=== PATIENT | male | born 1965 | race Caucasian/White ===

== ENCOUNTER → 2018-05-27 09:42 | Outpatient (CLI) | payer OTHER, SELFPAY ==
[2018-02-12 09:09] VITALS: BMI 39.4
[2018-05-27 12:18] LABS: Absolute Lymphocyte Count 1.52 X10^3/ul (0.83-4.51); Absolute Neutrophil Count 3.9 X10^3/uL (2.0-7.7); Basophil# 0.03 X10^3/uL; Basophil% 0.5 % (0-1); Eosinophil# 0.18 X10^3/uL; Eosinophils% 2.9 % (0-5); Hematocrit 43.8 % (40-54); Hemoglobin 14.8 g/dl (13.0-16.5); Lymphocyte # 1.52 X10^3/ul (4.0); Lymphocyte % 24.1 % (19-41); Mean Corp Hgb Conc 33.8 g/gl (32-36); Mean Corpuscular Hgb 29.7 pg (27.0-32.0); Mean Corpuscular Volume 87.8 fL (80-94); Mean Platelet Vol. 8.9 fl (6.2-12.0); Monocyte# 0.72 X10^3/uL; Monocyte% 11.4 % (0-10); Neutrophil # 3.85 X10^3/uL (2.7-7.7); Neutrophil % 60.9 % (47-70); Platelet Count 170 K/mm3 (150-450); RBC Distribution Width CV 14.4 % (11.6-14.6); RBC Distribution Width SD 45.7 fl (35.1-43.9); Red Blood Count 4.99 M/mm3 (4.6-6.2); White Blood Count 6.3 K/mm3 (4.4-11.0)
[2018-05-27 12:24] LABS: POSITIVE COUNT NO; POSITIVE DIFFERENTIAL NO; POSITIVE MORPHOLOGY NO
[2018-05-27 12:44] LABS: Anion Gap 2 (5-15); BUN 13 mg/dL (7-18); BUN/Creat Ratio 15.4 RATIO (10-20); Calcium,Total 8.6 mg/dL (8.5-10.1); Chloride 109 mmol/L (98-107); Cholesterol 154 mg/dL (200); Creatinine, Serum 0.84 mg/dL (0.70-1.30); EST Glomerular Filtration Rate 101 mL/min (>60); Est Glom Filt Rate - Afr Amer 123 mL/min (>60); Glucose 98 mg/dL (74-106); High Density Lipoprotein 22 mg/dL; Potassium 3.9 mmol/L (3.5-5.1); Sodium Level 138 mmol/L (136-145); Thyroid Stim Hormone (TSH) 0.52 uIU/mL (0.358-3.74); Triglycerides 220 mg/dL; Very Low Density Lipoprotein 44 mg/dL (5-40)
== END ==
PROVIDERS: Family Provider Family Medicine; PCP Family Medicine; Referring Provider Family Medicine; Visit Provider Family Medicine
DX: Z00.00 Encounter for general adult medical examination without abnormal findings (principal)
CPT/HCPCS: 36415; 80048; 80061; 84403; 84443; 85025

== ENCOUNTER → 2018-06-04 16:11 | Outpatient (CLI) | payer OTHER, SELFPAY ==
[2018-02-12 09:09] VITALS: BMI 39.4
== END ==
PROVIDERS: Family Provider Family Medicine; PCP Family Medicine; Referring Provider Family Medicine; Visit Provider Family Medicine
DX: R79.89 Other specified abnormal findings of blood chemistry (principal)
CPT/HCPCS: 36415; 84403

== ENCOUNTER → 2018-07-16 09:41 | Outpatient (CLI) | payer OTHER, SELFPAY ==
[2018-02-12 09:09] VITALS: BMI 39.4
== END ==
PROVIDERS: Family Provider Family Medicine; PCP Family Medicine; Referring Provider Family Medicine; Visit Provider Family Medicine
DX: R79.89 Other specified abnormal findings of blood chemistry (principal)
CPT/HCPCS: 36415; 84403

== ENCOUNTER → 2018-08-24 16:05 | Outpatient (CLI) | payer OTHER, SELFPAY ==
[2018-02-12 09:09] VITALS: BMI 39.4
== END ==
PROVIDERS: Family Provider Family Medicine; PCP Family Medicine; Visit Provider Nurse Practitioner Family
DX: R79.89 Other specified abnormal findings of blood chemistry (principal)
CPT/HCPCS: 36415; 84403

== ENCOUNTER → 2018-10-28 11:32 | Outpatient (CLI) | payer OTHER, SELFPAY ==
[2018-02-12 09:09] VITALS: BMI 39.4
== END ==
PROVIDERS: Family Provider Family Medicine; PCP Family Medicine; Referring Provider Family Medicine; Visit Provider Family Medicine
DX: R79.89 Other specified abnormal findings of blood chemistry (principal)
CPT/HCPCS: 36415; 84403

== ENCOUNTER → 2019-01-27 15:49 | Outpatient (CLI) | payer OTHER, SELFPAY ==
[2018-02-12 09:09] VITALS: BMI 39.4
== END ==
PROVIDERS: Family Provider Family Medicine; PCP Family Medicine; Referring Provider Family Medicine; Visit Provider Family Medicine
DX: R79.89 Other specified abnormal findings of blood chemistry (principal)
CPT/HCPCS: 36415; 84403

== ENCOUNTER → 2019-02-24 16:42 | Outpatient (CLI) | payer OTHER, SELFPAY ==
[2018-02-12 09:09] VITALS: BMI 39.4
--- NOTE | 2019-02-24 16:46 | RAD_ITS ---
HISTORY: right hip pain EXAMINATION/TECHNIQUE: XR AP pelvis and bilateral hips 5 views COMPARISON: 11/04/2011 FINDINGS: No fracture, dislocation, or bony abnormality. The sacroiliac and hip joints appear preserved. No bone erosions. As visualized, the soft tissues are negative. RAD/Hips B/L min 2 views w/ Pelvis IMPRESSION: Negative exam. Normal pelvis and bilateral hips. at 0402 Reported and signed by: Nicolas Quesada MD Electronically Signed: Nicolas Quesada, at 4:01 EST Tel , Service support ,
== END ==
PROVIDERS: Family Provider Family Medicine; PCP Family Medicine; Referring Provider Family Medicine; Visit Provider Family Medicine
DX: M25.551 Pain in right hip (principal)
CPT/HCPCS: 73521

== ENCOUNTER → 2019-04-14 14:30 | Outpatient (CLI) | payer OTHER, SELFPAY ==
[2018-02-12 09:09] VITALS: BMI 39.4
--- NOTE | 2019-04-14 15:39 | NEURO ---
NCS and/or EMG Patient Report Ordering Doctor: Ike Dykes DATE OF SERVICE: 04/14/19 Burke Panchal is a 54-year-old male presents for electrodiagnostic testing of the upper limbs. He reports numbness and tingling in both hands. Electrodiagnostic findings: Right median motor nerve demonstrates normal distal latency, with normal amplitude and reduced conduction velocity. Left median motor nerve demonstrates prolonged distal latency with normal amplitude and reduced conduction velocity. Normal ulnar motor response bilaterally. Prolonged median sensory latency at the wrist bilaterally on needle EMG, all muscles tested in the upper limb showed no evidence of denervation with normal motor unit action potentials. Electrodiagnostic impression: This is an abnormal study in the upper limbs. 1. Electrodiagnostic findings demonstrate bilateral median mononeuropathy. This is consistent with a mild bilateral carpal tunnel syndrome. If there are any further questions, please do not hesitate to contact me.
--- NOTE | 2019-04-14 17:01 | RAD_ITS ---
STUDY: X-RAY - LEFT KNEE REASON FOR EXAM: Left knee pain for one year. TECHNIQUE: 4 view(s) of the knee. COMPARISON: Radiographs 11/04/2011. FINDINGS: Normal visualized distal femur. Normal visualized proximal tibia and fibula. Normal proximal tibiofibular articulation. Normal medial femorotibial compartment. Normal lateral femorotibial compartment. Normal patellofemoral articulation. There is patellar enthesopathy. There are small metallic foreign bodies at the medial aspect of the distal femoral diaphysis. There is a small soft tissue calcification posterior to the proximal fibular/tibial diaphysis. RAD/Knee 4 or More Views IMPRESSION: Patellar enthesopathy. Small metallic foreign bodies. Electronically Signed: Luis Miguel Avila MD at 8:51 EST Tel , Service support ,
== END ==
PROVIDERS: Family Provider Family Medicine; PCP Family Medicine; Referring Provider Family Medicine; Visit Provider Family Medicine
DX: G56.03 Carpal tunnel syndrome, bilateral upper limbs (principal); M25.562 Pain in left knee
CPT/HCPCS: 73564; 95886; 95912

== ENCOUNTER → 2020-02-15 | Outpatient (CLI) | payer OTHER, SELFPAY | END | disposition home or self-care (01) | LOC: LABSPEC 12:22 | PROVIDERS: PCP Family Medicine; Visit Provider Physician Assistant Surgical | DX: U07.1 COVID-19 (principal) | CPT/HCPCS: 87635; U0003 ==

== ENCOUNTER → 2020-02-28 | Outpatient (CLI) | payer OTHER, SELFPAY | END | disposition home or self-care (01) | LOC: LABSPEC 15:23 | PROVIDERS: PCP Family Medicine; Visit Provider Physician Assistant Surgical | DX: Z20.822 Contact with and (suspected) exposure to COVID-19 (principal) | CPT/HCPCS: 87635; U0005; U0003 ==

== ENCOUNTER 2021-03-03 09:55 | Outpatient (CLI) | payer OTHER, SELFPAY ==
[2021-03-03 10:09] VITALS: BP 134/81; PULSE 87; RESP 16; TEMP 36.4; O2SAT 98; BMI 39.1
[2021-03-03] MEDS: 0.9% Saline Lock 10 ML Syringe IV (10:12)
[2021-03-03 10:39] VITALS: BP 127/76; PULSE 84; RESP 16; TEMP 36.9; O2SAT 99
[2021-03-03 11:43] VITALS: BP 116/76; PULSE 80; RESP 16; TEMP 36.5; O2SAT 98
== END 2021-03-03 23:59 | disposition home or self-care (01) ==
LOC: MS3OUT 09:55 → MS3 09:56
PROVIDERS: PCP Family Medicine; Referring Provider Nurse Practitioner Adult Health; Visit Provider Nurse Practitioner Adult Health
DX: Z23 Encounter for immunization (principal); U07.1 COVID-19; E66.9 Obesity, unspecified; Z68.39 Body mass index [BMI] 39.0-39.9, adult
CPT/HCPCS: J7050; M0245; Q0245; A4216

== ENCOUNTER 2021-03-15 15:09 | Outpatient (CLI) | payer OTHER, SELFPAY ==
--- NOTE | 2021-03-15 15:12 | RAD_ITS ---
STUDY: X-RAY CHEST REASON FOR EXAM: Male, 55 years old. ABN DENSITY TECHNIQUE: PA and 2 lateral views nipple markers were added on this exam COMPARISON: 03/07/2021 FINDINGS: Previously noted density in the right lower lung field is a nipple shadow as a nipple marker shows. The lungs are clear and expanded. There is no demonstrated pleural abnormality. Normal size heart. Normal mediastinum and breanna. Normal visualized pulmonary arteries. Normal visualized aortic arch and descending thoracic aorta. Normal visualized thoracic spine. Normal visualized ribs, clavicles, and shoulders. There is no demonstrated abnormality of the visualized soft tissue structures of the upper abdomen. RAD/Chest PA and Lateral IMPRESSION: No acute pulmonary process Electronically Signed: Luciano Patel MD at 10:08 EST ,
== END 2021-03-15 23:59 | disposition short-term general hospital (02) ==
PROVIDERS: PCP Family Medicine; Referring Provider Family Medicine; Visit Provider Family Medicine
DX: R93.89 Abnormal findings on diagnostic imaging of other specified body structures (principal)
CPT/HCPCS: 71046

== ENCOUNTER 2021-03-16 09:20 | Outpatient (CLI) | payer OTHER, SELFPAY ==
[2021-03-16 10:31] LABS: Anion Gap 6 (5-15); BUN 15 mg/dL (7-18); BUN/Creat Ratio 19.4 RATIO (10-20); Calcium,Total 8.7 mg/dL (8.5-10.1); Chloride 107 mmol/L (98-107); Cholesterol 191 mg/dL (200); Creatinine, Serum 0.77 mg/dL (0.70-1.30); EST Glomerular Filtration Rate 111 mL/min (>60); Est Glom Filt Rate - Afr Amer 134 mL/min (>60); Glucose 111 mg/dL (74-106); High Density Lipoprotein 28 mg/dL; Potassium 3.9 mmol/L (3.5-5.1); Sodium Level 139 mmol/L (136-145); Thyroid Stim Hormone (TSH) 0.62 uIU/mL (0.358-3.74); Triglycerides 408 mg/dL
== END 2021-03-16 23:59 | disposition short-term general hospital (02) ==
LOC: MFPLAB 09:23
PROVIDERS: PCP Family Medicine; Referring Provider Family Medicine; Visit Provider Family Medicine
DX: Z00.00 Encounter for general adult medical examination without abnormal findings (principal)
CPT/HCPCS: 36415; 80048; 80061; 84153; 84443; G0103

== ENCOUNTER 2021-04-03 05:58 | Day surgery (SDC) | payer OTHER, SELFPAY ==
[2021-04-03] VITALS (7 sets, daily range): BP systolic 148–167; BP diastolic 91–111; PULSE 83–94; RESP 16; TEMP 36.2–36.8; O2SAT 93–98; BMI 39.1
[2021-04-03] MEDS: Lactated Ringers 1,000 ML 15 ML IV (06:44)
[2021-04-03] MEDS: Cefazolin 2 GM in 0.9% Normal Saline 100 ML IV (07:25)
--- NOTE | 2021-04-03 07:28 | HP.PCM_ITS ---
History and Physical Date of Admission: 04/03/21 Date of Service: 03/19/21 MR#:[id number]: WARDJOSUE RODRIGUEZ ARe #:[id number]:1965 Provider:Dr. Andreas Cristobal DOAge/Sex: 55/M [facility] [place]Signed Intake Intake Visit Reasons: BILAT HANDS Is patient in pain?: Yes Allergies No Known Allergies Allergy (Verified 03/19/21 11:04) Medications eszopiclone 2 mg tablet 2 mg PO QHS PRN 02/12/18 [History Confirmed 03/19/21] gabapentin 300 mg capsule 300 mg PO DAILY cap 01/26/21 [History Confirmed 03/19/21] sumatriptan succinate 100 mg tablet 100 mg PO DAILY tab 01/26/21 [History Confirmed 03/19/21] zolpidem 5 mg tablet 5 mg PO DAILY tab 01/26/21 [History Confirmed 03/19/21] azithromycin 250 mg tablet 250 mg PO QDAY #12 tab 03/07/21 [Rx Confirmed 03/19/21] benzonatate 200 mg capsule 200 mg PO TID PRN #30 cap 03/07/21 [Rx Confirmed 03/19/21] COUNTS INCLUDE 234 BEDS AT THE [facility] Medical History (Updated 03/07/21 @ 12:52 by Drake WHEELER, PA) Acute pharyngitis, unspecified Acute sinusitis, unspecified Chronic back pain GERD (gastroesophageal reflux disease) Sleep apnea Surgical History History of colonoscopy History of throat surgery Family History Other Arthritis CVA (cerebral vascular accident) Cancer Hypertension Myocardial infarction hyperlipemia Social History Smoking Status: Never smoker alcohol intake: current alcohol intake frequency: holidays/special occasions only substance use type: does not use what type of physical activity do you participate in: none HPI BILAT HANDS Details: Parts of this documentation were recorded by a scribe, this documentation accurately reflects the service provided and the decisions made by me, Dr. Andreas Cristobal, 03/19/21 0752. JOSUE WARD is a 55 year old M here today for a followup on his EMG of his bilateral hands, right worse than left. Patient notes that he has numbness of his all 5 fingers. Patient feels stiffness in all his fingers. He states that his symptoms have improved as he is not working at this time, as he doesnt work in the winter. Patient is dropping items more frequently. He has tried wrist bracing and is unsure if it was helpful. He denies any previous injections. He does not have symptoms at night currently but did when he was working. Patient had his EMG which is here for review. He states that he has a history of rheumatoid arthritis within his family, his mother and grandmother. He complains of morning stiffness which decreases within an hour but does last throughout the day. He has not had any injury to the hands but cannot make a fist bilaterally and has stiffness with wrists as well Ortho Exam General General: Yes no acute distress Neurologic: Yes alert Psychologic: Yes reasonable and appropriate Right Wrist/Hand Skin/Wound: Yes CDI, No Swelling, No Ecchymosis and Yes capillary refill normal Right Wrist: Yes Tinel's and Phalen's WRIST: finger stiffness- unable to make a complete fist bilaterally. linear scar across 5th digit at PIP joint. 45 degrees wrist extension, 50 degrees of wrist flexion, 78 supination, 88 pronation Significant finger and wrist stiffness Left Wrist/Hand Skin/Wound: No Swelling and No Ecchymosis Left Wrist: Yes Tinel's and Yes Phalen's WRIST: 70 supination, full pronation, 55 extension, 75 flexion. Supplemental Info 02/19/2021 EMG bilateral upper extremities: mild bilateral carpal tunnel Coding Level of Care Code Off vis,est,level 3 Diagnoses Carpal tunnel syndrome, bilateral G56.03 Assessment and Plan Assessment and Plan (1) Carpal tunnel syndrome, bilateral: Status: Acute Plan - Dr. Andreas Cristobal, DO: Spoke with the patient about no changes in his EMG since his prior EMG in 2019. Explained his options- injections, surgery, bracing, benign neglect. Explained the importance of working on range of motion following surgery due to current stiffness. As he is unable to completely make a fist on either hand and significant wrist stiffness this will likely increase after surgery and he may indeed require occupational hand therapy. Recommended the patient see a biology laboratory assistant due to his wrist/finger swelling and stiffness and family history of RA. He may have the carpal tunnel release and then may see the biology laboratory assistant, per his request Risk of surgery including incisional hyper sensitivity pillar pain stiffness continued symptoms. Reviewed the pre-operative plans with the patient. Risks and benefits of the procedure were fully explained, including but not limited to infection, neurovascular injury, continued pain, arthritis, stiffness, need for further surgery, re-injury, DVT, PE, general risks of anesthesia, and loss of limb or life. The patient understands all the risks and does wish to proceed with written consent. Follow up for his 2 week post op or sooner if pain, swelling, numbness or associated symptoms, or concerns develop. All questions answered. Patient in agreement of plan. 03/19/21 1153<Electronically signed by Andreas Cristobal DO>Date Andreas Cristobal DO Cosigner Signature:Date (if applicable) I have re-examined the patient. There are no clinical changes since date of exam
[2021-04-03] MEDS: Lidocaine 1%/Epi 1:200 (30ml) 30 ML AMPUL (07:45)
--- NOTE | 2021-04-03 07:56 | OP.PCM_ITS ---
Report of Operation Date of Procedure: 04/03/21 Description of Surgical Findings:: Preoperative diagnosis; right carpal tunnel syndrome Postoperative diagnosis; same Procedure: Right open carpal tunnel release Anesthesia: Local with MAC Tourniquet time; [10] minutes 250 mm Hg Complications: None Indication for procedure; This is a 56-year-old male with long-standing symptoms consistent with carpal tunnel syndrome the patient did have electrodiagnostic evidence of this and has failed conservative treatment. In addition patient does have finger stiffness and swelling which I recommended he see rheumatology for he wished to proceed with carpal tunnel release prior to this consultation he understands this would not help with the swelling and stiffness in his fingers. risks benefits and alternatives were reviewed including risks of bleeding infection nerve artery tissue damage need for further surgery and continued pain and symptoms, hypersensitivity to scar and Pillar pain. Procedure; The patient was met in the preoperative holding area the operative extremity was identified by both patient and physician and was marked the patient was met by anesthesia and brought back to the operating room and transferred to the operating table in the supine position. Anesthesia was started. A well-padded tourniquet was placed on the operative upper extremity. The patient was prepped and draped in the usual sterile fashion. A timeout was called to ensure the proper patient procedure and extremity were being contemplated. 0.5 percent [ Lidocaine] with epinephrine was injected into the incisional area. An Esmarch was used to exsanguinate the extremity. The tourniquet was inflated to 250 mmHg. A midline incision was made with a 15 blade scalpel between the thenar and hypothenar eminence. This was carried down through the skin and subcutaneous tissue. Radha retractors were then used, a de ep blade scalpel was used to make a deep incision in the palmar aponeurosis. The radha retractors were then placed deep to this and the transverse carpal ligament was identified a perforation was made with a scalpel and a Littler scissors were used to complete the release of the transverse carpal ligament distally under direct visualization with the tips facing ulnarly until the perivascular fat was reached. Then turning our attention proximally using a tension slide technique the proximal extent of the transverse carpal ligament was released . There was noted to be hypertrophy of the transverse carpal ligament without other specific findings. The wound was thoroughly irrigated and was closed with 4-0 nylon vertical mattress stitches. Dressing was applied in the form of xeroform 4 x 4, web roll and an stanley wrap. Tourniquet was let down there is no intraoperative complications patient tolerated the procedure well and was transferred to the PACU. All counts were correct.
--- NOTE | 2021-04-03 07:57 | EX.PCM.DISCH ---
Discharge Instructions Diet Discharge Diet: No restrictions Activity Keep extremity elevated above heart level: Operative Extremity Dressing / Incision Additional Dressing/Incision Instructions:: Ice and elevate operative extremity next 72 hours. Keep dressing on clean and dry for 48 hours then may remove and allow warm soapy water to rinse over incision but do not submerge until sutures are out. Then apply bandaid over incision and change daily. encourage finger range of motion. Not lift more than 1/2 pound. Minimize narcotic use only as needed and directed, may use OTC NSAID and Tylenol to supplement/substitute for pain control. Follow Up Care Please Follow Up With: Andreas Cristobal DO When: 2 weeks Test Results: Test results from this visit will be discussed in further detail at your follow-up appointment, if applicable. Discharge Plan Admission Attending Provider: Andreas Cristobal Primary Care Provider: Ike Dykes Discharge Orders/Prescriptions Prescriptions: New oxycodone 5 mg tablet 5 - 10 mg PO Q4H PRN (Reason: pain) 5 Days Qty: 15 RF: 0 No Action eszopiclone [Lunesta] 2 mg tablet 2 mg PO QHS PRN (Reason: Sleep) RF: 0 zolpidem 5 mg tablet 5 mg PO QHS RF: 0 sumatriptan succinate [Imitrex] 100 mg tablet 100 mg PO DAILY PRN (Reason: Migraine Headache) RF: 0 Referrals / Follow Up: Ike Dykes MD [Primary Care Provider] - Disposition Disposition (needs filled in before D/C Order can be placed): Home, Self Care
== END 2021-04-03 23:59 | disposition home or self-care (01) ==
LOC: SDC 06:00 → AC 06:01
PROVIDERS: PCP Family Medicine; Referring Provider Orthopaedic Surgery; Visit Provider Orthopaedic Surgery
PROC: (CPT 64721; principal; 2021-04-03 07:15)
DX: G56.01 Carpal tunnel syndrome, right upper limb (principal); Z82.61 Family history of arthritis
CPT/HCPCS: 64721; 01810; J7120; J2405

== ENCOUNTER → 2022-02-06 | Outpatient (CLI) | payer OTHER, SELFPAY ==
[2022-02-06] MEDS: Zolpidem Tartrate 5 MG Tablet PO (22:17)
== END | disposition home or self-care (01) ==
LOC: SL 20:20
PROVIDERS: PCP Family Medicine; Visit Provider Otolaryngology
DX: G47.33 Obstructive sleep apnea (adult) (pediatric) (principal); R06.83 Snoring; R53.81 Other malaise
CPT/HCPCS: 95810

== ENCOUNTER → 2022-05-15 | Outpatient (CLI) | payer OTHER, SELFPAY ==
--- NOTE | 2022-05-15 11:59 | RAD_ITS ---
STUDY: X-RAY - RIGHT SHOULDER REASON FOR EXAM: Male, 57 years old. Shoulder pain. TECHNIQUE: 4 view(s) of the shoulder. COMPARISON: None. FINDINGS: Normal glenohumeral articulation. There is degenerative arthrosis of the acromioclavicular joint without inferior osseous spur formation. Normal acromion. Normal humeral head and visualized proximal humerus. There is periarticular soft tissue calcification consistent with a calcific tendinitis. Normal visualized pulmonary apex. RAD/Shoulder min 2 Views IMPRESSION: Calcific tendinitis. Mild degree of degenerative changes of the acromioclavicular joint. Electronically Signed: Sivakumar Vidales MD at 12:35 EDT ,
--- NOTE | 2022-05-15 11:59 | RAD_ITS ---
STUDY: X-RAY - LEFT SHOULDER REASON FOR EXAM: Male, 57 years old. Shoulder pain. TECHNIQUE: 4 view(s) of the shoulder. COMPARISON: None. FINDINGS: Normal glenohumeral articulation. Normal acromioclavicular joint. Normal acromion. Normal humeral head and visualized proximal humerus. There is periarticular soft tissue calcification consistent with a calcific tendinitis. Normal visualized pulmonary apex. RAD/Shoulder min 2 Views IMPRESSION: Calcific tendinitis. Electronically Signed: Sivakumar Vidales MD at 12:34 EDT ,
== END | disposition home or self-care (01) ==
LOC: MTRAD 11:57
PROVIDERS: PCP Family Medicine; Referring Provider Family Medicine; Visit Provider Family Medicine
DX: M25.511 Pain in right shoulder (principal); M25.512 Pain in left shoulder
CPT/HCPCS: 73030

== ENCOUNTER → 2022-11-20 | Outpatient (CLI) | payer OTHER, SELFPAY ==
[2022-11-20 10:39] LABS: T3 Total - Triiodothyronine 1.57 ng/mL (0.6-1.81)
[2022-11-20 11:10] LABS: T4 Free Direct 1.09 ng/dL (0.76-1.46); Thyroid Stim Hormone (TSH) 0.86 uIU/mL (0.358-3.74)
[2022-11-22 08:12] LABS: Anti-Thyroglobulin AB < 1.0 IU/mL (0.0-0.9); Thyroglobulin, Serum Qt. 45.7 ng/mL (1.4-29.2); Thyroid Peroxidase AB < 9 IU/mL (0-34); Thyroid Stim Immunoglob <0.10 IU/L (0.00-0.55)
== END | disposition home or self-care (01) ==
LOC: MTLAB 09:14
PROVIDERS: PCP Family Medicine; Referring Provider Ophthalmology; Visit Provider Ophthalmology
DX: H05.20 Unspecified exophthalmos (principal); X58.XXXA Exposure to other specified factors, initial encounter; H25.813 Combined forms of age-related cataract, bilateral; H40.023 Open angle with borderline findings, high risk, bilateral; H25.041 Posterior subcapsular polar age-related cataract, right eye; H43.812 Vitreous degeneration, left eye; H04.123 Dry eye syndrome of bilateral lacrimal glands; E05.90 Thyrotoxicosis, unspecified without thyrotoxic crisis or storm
CPT/HCPCS: 36415; 84432; 84439; 84443; 84445; 84480; 86376; 86800

== ENCOUNTER → 2022-11-28 | Outpatient (CLI) | payer OTHER, SELFPAY ==
--- NOTE | 2022-11-28 14:27 | CT_ITS ---
EXAM: CT TEMPORAL BONES WITHOUT AND WITH INTRAVENOUS CONTRAST CLINICAL INDICATION: PROPTOSIS TECHNIQUE: Routine CT protocol was performed of the internal auditory canals and temporal bones without and with intravenous contrast. 2-D reformats were performed by the technologist. This CT exam was performed using one or more of the following dose reduction techniques: automated exposure control, adjustment of the mA and/or kV according to patient size, and/or use of iterative reconstruction technique. CONTRAST: 50 cc of Isovue-370 IV. RADIATION DOSE: CTDIvol = 29.38 mGy, DLP = 698.23 mGy-cm COMPARISON: No relevant prior studies available. FINDINGS: RIGHT OSSICLES AND MIDDLE EAR: Unremarkable. Well aerated. Ossicles and scutum intact. RIGHT COCHLEA: Unremarkable. RIGHT VESTIBULE: Unremarkable. RIGHT SEMICIRCULAR CANALS: Unremarkable. RIGHT INTERNAL AUDITORY CANAL: Unremarkable. No osseous erosion or widening of the canal. RIGHT EXTERNAL AUDITORY CANAL: Clear. RIGHT MASTOID AIR CELLS: Unremarkable. Well aerated. LEFT OSSICLES AND MIDDLE EAR: Unremarkable. Well aerated. Ossicles and scutum intact. LEFT COCHLEA: Unremarkable. LEFT VESTIBULE: Unremarkable. LEFT SEMICIRCULAR CANALS: Unremarkable. LEFT INTERNAL AUDITORY CANAL: Unremarkable. No osseous erosion or widening of the canal. LEFT EXTERNAL AUDITORY CANAL: Clear. LEFT MASTOID AIR CELLS: Unremarkable. Well aerated. BONES/JOINTS: No discrete lytic or blastic abnormalities. SOFT TISSUES: Unremarkable. ORBITS: The anterior surface of the eyeballs are proximally 26 mm anterior to the interzygomatic line consistent with mild proptosis. BRAIN AND EXTRA-AXIAL SPACES: Unremarkable as visualized. Cerebello-pontine angles are unremarkable. CT/Orb Sella Post Fossa Ear W/WO IMPRESSION: The anterior surface of the eyeballs are proximally 26 mm anterior to the interzygomatic line consistent with mild proptosis. Electronically Signed: Alvarez Aguila MD at 15:36 EDT ,
== END | disposition home or self-care (01) ==
LOC: CT 14:24
PROVIDERS: PCP Family Medicine; Referring Provider Ophthalmology; Visit Provider Ophthalmology
DX: H05.20 Unspecified exophthalmos (principal); H25.813 Combined forms of age-related cataract, bilateral; H40.023 Open angle with borderline findings, high risk, bilateral; H25.041 Posterior subcapsular polar age-related cataract, right eye; H43.812 Vitreous degeneration, left eye; E05.90 Thyrotoxicosis, unspecified without thyrotoxic crisis or storm; H04.123 Dry eye syndrome of bilateral lacrimal glands
CPT/HCPCS: 70482; Q9967

== ENCOUNTER → 2023-01-10 | Outpatient (CLI) | payer OTHER, SELFPAY ==
--- NOTE | 2023-01-10 15:12 | RAD_ITS ---
INDICATION: HIP PAIN EXAMINATION/TECHNIQUE: X-RAY - XR Hips Bilateral with Pelvis when performed; 2 Views COMPARISON: FINDINGS: PELVIC BONES: No displaced fracture, destructive or sclerotic lesions. Note that overlapping bowel shadows may however obscure fine detail. Sacroiliac joints are unremarkable. No widening of the pubic symphysis. HIPS: Mild bilateral hip joint space loss is present. No displaced fracture seen in this frontal view. SOFT TISSUES: No soft tissue swelling or gas. RAD/Hips B/L min 2 views w/ Pelvis IMPRESSION: Mild bilateral hip joint space loss with no evidence of acute osseous abnormality. Electronically Signed: Tavo Currie DO at 16:10 EST ,
== END | disposition home or self-care (01) ==
LOC: MTRAD 15:12
PROVIDERS: PCP Family Medicine; Referring Provider Family Medicine; Visit Provider Family Medicine
DX: M25.559 Pain in unspecified hip (principal)
CPT/HCPCS: 73521

== ENCOUNTER → 2024-04-26 | Outpatient (CLI) | payer OTHER, SELFPAY ==
--- NOTE | 2024-04-26 07:23 | CT_ITS ---
PROCEDURE: SINUS/FACIAL BONE REASON FOR EXAM: Recurrent ear infections. TECHNIQUE: CT of the paranasal sinuses without contrast. CONTRAST: None COMPARISON: None. FINDINGS: Frontal: Frontal sinuses and frontoethmoidal recesses appear clear. Ethmoid: Ethmoid air cells appear clear. Sphenoid: Sphenoid sinuses and sphenoethmoidal recesses appear clear. Maxillary: Minimal mucosal thickening at the base of the left maxillary sinus. The ostiomeatal units appear widely patent. Turbinates: Unremarkable. Nasal Septum: Midline. No large nasal septal spur. Mastoids/Middle Ears: Clear at visualized levels. Visualized intracranial structures are unremarkable. No suspicious contrast enhancement. CT/Sinus/Facial Bone IMPRESSION: Minimal mucosal thickening at the base of the left maxillary sinus. One or more dose reduction techniques were used (e.g., Automated exposure contr ol, adjustment of the mA and/or kV according to patient size, use of iterative reconstruction technique). Reading Location: [place] [id number]
== END | disposition home or self-care (01) ==
LOC: CT 07:18
PROVIDERS: PCP Family Medicine; Referring Provider Otolaryngology; Visit Provider Otolaryngology
DX: J32.4 Chronic pansinusitis (principal)
CPT/HCPCS: 70486

== ENCOUNTER → 2024-05-17 | Outpatient (CLI) | payer OTHER, SELFPAY ==
[2024-05-17 12:31] LABS: Anion Gap 13 (5-15); BUN 9 mg/dL (4-19); BUN/Creat Ratio 11.8 RATIO (10-20); Calcium,Total 9.3 mg/dL (7.6-11.0); Carbon Dioxide 21.3 mmol/L (21.0-32.0); Chloride 104 mmol/L (98-108); Cholesterol 181 mg/dL (<=200); Creatinine, Serum 0.76 mg/dL (0.70-1.20); EST Glomerular Filtration Rate 104 (>60); Glucose 116 mg/dL (70-99); High Density Lipoprotein 26 mg/dL; Low Density Lipoprotein Calc. 90 mg/dL; Potassium 4.2 mmol/L (3.3-5.1); Sodium Level 139 mmol/L (133-145); Triglycerides 323 mg/dL; Very Low Density Lipoprotein 65 mg/dL (5-40); cholesterol:hdl ratio screen 6.91
[2024-05-19 18:43] LABS: Hemoglobin A1c 5.8 % (<=5.6)
== END | disposition home or self-care (01) ==
PROVIDERS: PCP Family Medicine; Referring Provider Family Medicine; Visit Provider Family Medicine
DX: Z00.00 Encounter for general adult medical examination without abnormal findings (principal)
CPT/HCPCS: 36415; 80048; 80061; 83036

== ENCOUNTER → 2024-06-02 | Outpatient (CLI) | payer OTHER, SELFPAY ==
[2024-06-02 13:16] LABS: Free T3 3.8 pg/mL (2.18-3.98); Thyroid Stim Hormone (TSH) 0.537 uIU/mL (0.300-4.200)
== END | disposition home or self-care (01) ==
LOC: MTLAB 10:42
PROVIDERS: PCP Family Medicine; Referring Provider Ophthalmology; Visit Provider Ophthalmology
DX: H05.20 Unspecified exophthalmos (principal); H25.813 Combined forms of age-related cataract, bilateral
CPT/HCPCS: 36415; 84439; 84443; 84481

== ENCOUNTER → 2024-12-02 | Outpatient (CLI) | payer OTHER, SELFPAY ==
--- NOTE | 2024-12-02 14:45 | RAD_ITS ---
PROCEDURE: KNEE 4 OR MORE VIEWS 12/02/2024 REASON FOR EXAM: PAIN TECHNIQUE: Procedure Code: RADKN Modality: DX Procedure: KNEE 4 OR MORE VIEWS Laterality: Left COMPARISON: None FINDINGS: There is no evidence of fracture or dislocation. There is no significant arthritis of the patellofemoral joint. There is no significant arthritis of the medial joint space compartment of the knee. There is no significant arthritis of the lateral joint space compartment of the knee. There is enthesopathy of the patella. There is no knee joint effusion. The periarticular soft tissues are normal. RAD/Knee 4 or More Views IMPRESSION: No significant arthritis. Enthesopathy of the patella. Reading Location: [place] [address]
== END | disposition home or self-care (01) ==
LOC: MTRAD 14:43
PROVIDERS: PCP Family Medicine; Referring Provider Family Medicine; Visit Provider Family Medicine
DX: M25.562 Pain in left knee (principal)
CPT/HCPCS: 73564